=== PATIENT | male | born 1970 | race Two or more races ===

== ENCOUNTER 2022-11-06 08:41 | Outpatient (CLI) | payer OTHER | END 2022-11-06 08:52 | disposition home or self-care (01) | LOC: RX STUDY 08:41 | PROVIDERS: ATTEND Colon & Rectal Surgery | DX: K57.20 Diverticulitis of large intestine with perforation and abscess without bleeding (principal) ==

== ENCOUNTER 2023-04-17 09:23 | Inpatient (IN) | payer OTHER ==
[~2023-04-17] VITALS: Ht 185.4 cm; Wt 94.8 kg
[2023-04-18] MEDS ORDERED: JANUMET XR 50-1 EAC1 PO (10:55)
== END 2023-04-29 15:22 | disposition home or self-care (01) | DRG 331 ==
LOC: O/R 04-24 05:10 → SURG 04-24 09:30
PROVIDERS: Internal Medicine Geriatric Medicine; ADMIT Colon & Rectal Surgery; ATTEND Colon & Rectal Surgery
PROC: 0DBP4ZZ Excision of Rectum, Percutaneous Endoscopic Approach (ICD-10-PCS; 2023-04-24)
PROC: 0DBE4ZZ Excision of Large Intestine, Percutaneous Endoscopic Approach (ICD-10-PCS; 2023-04-24)
PROC: 0DJD8ZZ Inspection of Lower Intestinal Tract, Via Natural or Artificial Opening Endoscopic (ICD-10-PCS; 2023-04-24)
PROC: 0DTN4ZZ Resection of Sigmoid Colon, Percutaneous Endoscopic Approach (ICD-10-PCS; principal; 2023-04-24 14:45)
DX: K57.32 Diverticulitis of large intestine without perforation or abscess without bleeding (principal); Z43.3 Encounter for attention to colostomy

== ENCOUNTER 2023-06-25 11:27 | Inpatient (IN) | payer OTHER ==
[~2023-06-25] VITALS: Ht 185.4 cm; Wt 71.7 kg
[~2023-06-25 11:27] MED LIST: JANUMET XR 50-1 EAC1 PO
[2023-06-25 13:59] LABS: HEMATOCRIT 29.7 % (39.0-48.0); MEAN CELL VOLUME 85.6 fL (80.0-100.00); MEAN CORPUSCULAR HGB CONC 33.7 g/dl (32.0-36.0); PLATELET COUNT 562 K/uL (150-450); RED BLOOD COUNT 3.47 M/uL (4.00-6.00); RED CELL DISTRIBUTION WIDTH 14.4 % (11.5-14.5)
[2023-06-25 14:23] LABS: CALCIUM 8.8 mg/dL (8.5-10.1); CREATININE SERUM 0.56 mg/dL (0.70-1.30); GFR 153.21; POTASSIUM 4.34 mEq/L (3.5-5.1)
[2023-06-25 15:05] LABS: MEAN CORPUSCULAR HEMOGLOBIN 28.8 pg (27.00-32.0)
[2023-06-25 15:28] LABS: PH,URINE 5.5 (5.0-8.0); URINE APPEARANCE Cloudy; URINE BILIRRUBIN Small (NEGATIVE); URINE BLOOD Negative; URINE COLOR Dark Yellow; URINE GLUCOSE Negative (NEGATIVE); URINE LEUKOCYTE Trace; URINE NITRATE Negative; URINE PROTEIN 30 (NEGATIVE)
[2023-06-25 15:32] LABS: URINE BACTERIA 45.3 uL (0.0-1933); URINE EPITHELIAL CELLS 22.7 uL (0.0-38.8); URINE RBC 10.7 uL (0.0-20.8); URINE WBC 6.7 uL (0.0-23.2)
[2023-06-25 15:43] LABS: URINE CRYSTALS FEW /HPF
[2023-06-26 00:23] LABS: INR 1.09; PARTIAL THROMBOPLASTIN TIME 25.3 SECONDS (22.0-34.0); PROTHROMBIN TIME 11.4 SECONDS (9.0-11.5)
[2023-06-26 16:04] LABS: CALCIUM 7.9 mg/dL (8.5-10.1); CHOL HDL RATIO 2.2 (0-5.0); CREATININE SERUM 0.41 mg/dL (0.70-1.30); GFR 219.55; POTASSIUM 4.42 mEq/L (3.5-5.1)
[2023-06-27 08:33] LABS: ALBUMIN 1.6 gm/dL (3.4-5.0); BILIRUBIN TOTAL 0.54 mg/dL (0.3-1.2); CREATININE SERUM 0.47 mg/dL (0.70-1.30); GFR 187.53; GLOBULINA 3.8 G/DL (2.4-3.5); MAGNESIUM 1.6 mg/dL (1.8-2.4); PHOSPHOROUS 2.6 mg/dL (2.5-4.9); POTASSIUM 4.25 mEq/L (3.5-5.1); TOTAL PROTEIN 5.4 gm/dL (6.4-8.2)
[2023-06-27 08:44] LABS: C-REACTIVE PROTEIN 12.6 MG/DL (0.00-0.29); MEAN CELL VOLUME 85.8 fL (80.0-100.00); MEAN CORPUSCULAR HGB CONC 34.8 g/dl (32.0-36.0); PLATELET COUNT 398 K/uL (150-450); RED BLOOD COUNT 2.91 M/uL (4.00-6.00); RED CELL DISTRIBUTION WIDTH 14.1 % (11.5-14.5)
[2023-06-27 09:41] LABS: MEAN CORPUSCULAR HEMOGLOBIN 29.8 pg (27.00-32.0)
[2023-06-27 09:42] LABS: HEMOGLOBIN 8.7 g/dL (13-16.00)
[2023-06-30 07:47] LABS: HEMATOCRIT 27.3 % (39.0-48.0); HEMOGLOBIN 9.4 g/dL (13-16.00); MEAN CELL VOLUME 84.8 fL (80.0-100.00); MEAN CORPUSCULAR HEMOGLOBIN 29.1 pg (27.00-32.0); MEAN CORPUSCULAR HGB CONC 34.3 g/dl (32.0-36.0); PLATELET COUNT 421 K/uL (150-450); RED BLOOD COUNT 3.22 M/uL (4.00-6.00); RED CELL DISTRIBUTION WIDTH 14.1 % (11.5-14.5)
[2023-06-30 07:58] LABS: BILIRUBIN TOTAL 0.27 mg/dL (0.3-1.2); CALCIUM 8.1 mg/dL (8.5-10.1); CREATININE SERUM 0.46 mg/dL (0.70-1.30); GFR 192.25; GLOBULINA 4.2 G/DL (2.4-3.5); MAGNESIUM 1.7 mg/dL (1.8-2.4); PHOSPHOROUS 2.6 mg/dL (2.5-4.9); POTASSIUM 3.45 mEq/L (3.5-5.1); TOTAL PROTEIN 6.2 gm/dL (6.4-8.2)
[2023-06-30 08:04] LABS: C-REACTIVE PROTEIN 2.5 MG/DL (0.00-0.29)
[2023-07-02 07:15] LABS: INR 1.11; PARTIAL THROMBOPLASTIN TIME 25.9 SECONDS (22.0-34.0)
[2023-07-02 07:22] LABS: ALBUMIN 2.1 gm/dL (3.4-5.0); BILIRUBIN TOTAL 0.49 mg/dL (0.3-1.2); BILIRUBIN,CONJUGATED 0.17 mg/dL (0.0-0.2); BILIRUBIN,UNCONJUGATED 0.32 mg/dL (0.0-0.6); CALCIUM 8.1 mg/dL (8.5-10.1); CHOL HDL RATIO 2.7 (0-5.0); CREATININE SERUM 0.69 mg/dL (0.70-1.30); GFR 120.41; TOTAL PROTEIN 6.1 gm/dL (6.4-8.2)
[2023-07-02 07:52] LABS: MAGNESIUM 1.4 mg/dL (1.8-2.4)
[2023-07-02 07:57] LABS: POTASSIUM 2.93 mEq/L (3.5-5.1)
[2023-07-02 08:06] LABS: HEMATOCRIT 25.9 % (39.0-48.0); MEAN CELL VOLUME 86.1 fL (80.0-100.00); MEAN CORPUSCULAR HGB CONC 34.3 g/dl (32.0-36.0); PLATELET COUNT 382 K/uL (150-450); RED BLOOD COUNT 3.01 M/uL (4.00-6.00); RED CELL DISTRIBUTION WIDTH 14.2 % (11.5-14.5)
[2023-07-02 08:13] LABS: HEMOGLOBIN 8.9 g/dL (13-16.00); MEAN CORPUSCULAR HEMOGLOBIN 29.5 pg (27.00-32.0)
[2023-07-02 08:20] LABS: PROTHROMBIN TIME 11.6 SECONDS (9.0-11.5)
[2023-07-02 09:46] LABS: UREA CLEARANCE 35.7 ML/MIN
[2023-07-09 06:45] LABS: INR 1.21; PARTIAL THROMBOPLASTIN TIME 28.2 SECONDS (22.0-34.0); PROTHROMBIN TIME 12.5 SECONDS (9.0-11.5)
[2023-07-09 07:23] LABS: HEMATOCRIT 27.1 % (39.0-48.0); HEMOGLOBIN 9.5 g/dL (13-16.00); MEAN CORPUSCULAR HEMOGLOBIN 28.7 pg (27.00-32.0); PLATELET COUNT 344 K/uL (150-450); RED CELL DISTRIBUTION WIDTH 15.1 % (11.5-14.5)
[2023-07-09 07:28] LABS: ALBUMIN 2.3 gm/dL (3.4-5.0); BILIRUBIN TOTAL 0.41 mg/dL (0.3-1.2); BILIRUBIN,CONJUGATED 0.16 mg/dL (0.0-0.2); BILIRUBIN,UNCONJUGATED 0.25 mg/dL (0.0-0.6); CALCIUM 7.8 mg/dL (8.5-10.1); CHOL HDL RATIO 2.7 (0-5.0); CREATININE SERUM 0.9 mg/dL (0.70-1.30); GFR 88.61; TOTAL PROTEIN 6.3 gm/dL (6.4-8.2)
[2023-07-09 08:13] LABS: MAGNESIUM 0.9 mg/dL (1.8-2.4)
[2023-07-09 08:14] LABS: POTASSIUM 1.69 mEq/L (3.5-5.1)
[2023-07-09 11:30] LABS: UREA CLEARANCE 34.4 ML/MIN
[2023-07-10 06:28] LABS: HEMATOCRIT 24.5 % (39.0-48.0); MEAN CELL VOLUME 82.2 fL (80.0-100.00); PLATELET COUNT 335 K/uL (150-450); RED BLOOD COUNT 2.98 M/uL (4.00-6.00); RED CELL DISTRIBUTION WIDTH 15.6 % (11.5-14.5)
[2023-07-10 06:34] LABS: MEAN CORPUSCULAR HEMOGLOBIN 29.5 pg (27.00-32.0)
[2023-07-10 06:35] LABS: HEMOGLOBIN 8.8 g/dL (13-16.00)
[2023-07-10 07:09] LABS: ALBUMIN 2.3 gm/dL (3.4-5.0); CALCIUM 7.9 mg/dL (8.5-10.1); CREATININE SERUM 0.75 mg/dL (0.70-1.30); GFR 109.36; MAGNESIUM 1.5 mg/dL (1.8-2.4)
[2023-07-10 09:11] LABS: PHOSPHOROUS 0.5 mg/dL (2.5-4.9); POTASSIUM 1.72 mEq/L (3.5-5.1)
[2023-07-11 11:36] LABS: HEMATOCRIT 32.8 % (39.0-48.0); HEMOGLOBIN 11.6 g/dL (13-16.00); MEAN CELL VOLUME 83.2 fL (80.0-100.00); MEAN CORPUSCULAR HEMOGLOBIN 29.3 pg (27.00-32.0); MEAN CORPUSCULAR HGB CONC 35.3 g/dl (32.0-36.0); PLATELET COUNT 354 K/uL (150-450); RED BLOOD COUNT 3.94 M/uL (4.00-6.00); RED CELL DISTRIBUTION WIDTH 16.1 % (11.5-14.5)
[2023-07-11 12:10] LABS: CALCIUM 7.7 mg/dL (8.5-10.1); CREATININE SERUM 0.72 mg/dL (0.70-1.30); GFR 114.64; MAGNESIUM 1.8 mg/dL (1.8-2.4)
[2023-07-11 12:40] LABS: ALT/SGPT 8 U/L (12-78); AST/SGOT 22 U/L (15-37); PHOSPHOROUS 0.5 mg/dL (2.5-4.9); POTASSIUM 1.68 mEq/L (3.5-5.1)
[2023-07-11 12:41] LABS: PHOSPHOKINASE CREATININE 1108 U/L (39-308)
[2023-07-12 08:26] LABS: ALBUMIN 2.4 gm/dL (3.4-5.0); BILIRUBIN TOTAL 0.73 mg/dL (0.3-1.2); CALCIUM 7.9 mg/dL (8.5-10.1); CREATININE SERUM 0.66 mg/dL (0.70-1.30); GLOBULINA 4.1 G/DL (2.4-3.5); MAGNESIUM 2.2 mg/dL (1.8-2.4); T4 TOTAL 8.75 UG/DL (4.5-12.1); TOTAL PROTEIN 6.5 gm/dL (6.4-8.2); TSH 0.625 uIU/mL (0.358-3.74)
[2023-07-12 08:40] LABS: HEMATOCRIT 30.8 % (39.0-48.0); HEMOGLOBIN 10.9 g/dL (13-16.00); MEAN CELL VOLUME 83.5 fL (80.0-100.00); MEAN CORPUSCULAR HEMOGLOBIN 29.5 pg (27.00-32.0); MEAN CORPUSCULAR HGB CONC 35.3 g/dl (32.0-36.0); PLATELET COUNT 390 K/uL (150-450); RED BLOOD COUNT 3.68 M/uL (4.00-6.00); RED CELL DISTRIBUTION WIDTH 15.7 % (11.5-14.5)
[2023-07-12 09:27] LABS: GFR 126.74
[2023-07-12 09:52] LABS: PHOSPHOROUS 1.1 mg/dL (2.5-4.9); POTASSIUM 2.31 mEq/L (3.5-5.1)
[2023-07-13 07:51] LABS: HEMATOCRIT 32.4 % (39.0-48.0); HEMOGLOBIN 11.3 g/dL (13-16.00); MEAN CELL VOLUME 83.5 fL (80.0-100.00); MEAN CORPUSCULAR HEMOGLOBIN 29.1 pg (27.00-32.0); MEAN CORPUSCULAR HGB CONC 34.9 g/dl (32.0-36.0); PLATELET COUNT 391 K/uL (150-450); RED BLOOD COUNT 3.88 M/uL (4.00-6.00); RED CELL DISTRIBUTION WIDTH 15.8 % (11.5-14.5)
[2023-07-13 08:31] LABS: CALCIUM 7.7 mg/dL (8.5-10.1); CREATININE SERUM 0.65 mg/dL (0.70-1.30); MAGNESIUM 1.8 mg/dL (1.8-2.4)
[2023-07-13 09:11] LABS: PHOSPHOROUS 1.5 mg/dL (2.5-4.9); POTASSIUM 2.71 mEq/L (3.5-5.1)
[2023-07-14 08:06] LABS: ACTH 33.2 pg/mL (7.2-63.3)
[2023-07-14 11:29] LABS: HEMATOCRIT 34.3 % (39.0-48.0); HEMOGLOBIN 11.7 g/dL (13-16.00); MEAN CELL VOLUME 84.4 fL (80.0-100.00); MEAN CORPUSCULAR HEMOGLOBIN 28.9 pg (27.00-32.0); MEAN CORPUSCULAR HGB CONC 34.2 g/dl (32.0-36.0); PLATELET COUNT 384 K/uL (150-450); RED BLOOD COUNT 4.06 M/uL (4.00-6.00); RED CELL DISTRIBUTION WIDTH 15.4 % (11.5-14.5)
[2023-07-14 12:07] LABS: CALCIUM 8.5 mg/dL (8.5-10.1); CREATININE SERUM 0.61 mg/dL (0.70-1.30); GFR 138.81; MAGNESIUM 1.5 mg/dL (1.8-2.4); PHOSPHOROUS 2.2 mg/dL (2.5-4.9); POTASSIUM 3.24 mEq/L (3.5-5.1)
[2023-07-16 07:26] LABS: HEMATOCRIT 33.8 % (39.0-48.0); HEMOGLOBIN 11.7 g/dL (13-16.00); MEAN CELL VOLUME 84.6 fL (80.0-100.00); MEAN CORPUSCULAR HEMOGLOBIN 29.4 pg (27.00-32.0); MEAN CORPUSCULAR HGB CONC 34.7 g/dl (32.0-36.0); PLATELET COUNT 298 K/uL (150-450); RED CELL DISTRIBUTION WIDTH 16.1 % (11.5-14.5)
[2023-07-16 08:04] LABS: INR 1.06; PARTIAL THROMBOPLASTIN TIME 28.9 SECONDS (22.0-34.0); PROTHROMBIN TIME 11.1 SECONDS (9.0-11.5)
[2023-07-16 08:09] LABS: ALBUMIN 2.8 gm/dL (3.4-5.0); BILIRUBIN TOTAL 0.8 mg/dL (0.3-1.2); BILIRUBIN,CONJUGATED 0.36 mg/dL (0.0-0.2); BILIRUBIN,UNCONJUGATED 0.44 mg/dL (0.0-0.6); CALCIUM 8.9 mg/dL (8.5-10.1); CREATININE SERUM 0.66 mg/dL (0.70-1.30); GFR 126.74; GLOBULINA 4.3 G/DL (2.4-3.5); MAGNESIUM 1.8 mg/dL (1.8-2.4); PHOSPHOROUS 3.1 mg/dL (2.5-4.9); POTASSIUM 3.35 mEq/L (3.5-5.1); TOTAL PROTEIN 7.1 gm/dL (6.4-8.2)
[2023-07-16 08:12] LABS: C-REACTIVE PROTEIN 2.44 MG/DL (0.00-0.29)
[2023-07-16 10:48] LABS: UREA CLEARANCE 44.6 ML/MIN
[2023-07-17 12:08] LABS: ALDOSTERONE SERUM < 1.0 ng/dL (0.0-30.0)
[2023-07-17 14:23] LABS: CALCIUM 9.1 mg/dL (8.5-10.1); CREATININE SERUM 0.7 mg/dL (0.70-1.30); GFR 118.42; MAGNESIUM 1.9 mg/dL (1.8-2.4); PHOSPHOROUS 3.3 mg/dL (2.5-4.9); POTASSIUM 3.67 mEq/L (3.5-5.1)
[2023-07-18 07:57] LABS: CALCIUM 8.5 mg/dL (8.5-10.1); CREATININE SERUM 0.62 mg/dL (0.70-1.30); GFR 136.23; MAGNESIUM 1.7 mg/dL (1.8-2.4); PHOSPHOROUS 3.3 mg/dL (2.5-4.9); POTASSIUM 3.44 mEq/L (3.5-5.1)
[2023-07-18 08:02] LABS: HEMATOCRIT 31.3 % (39.0-48.0); HEMOGLOBIN 10.7 g/dL (13-16.00); MEAN CELL VOLUME 86.2 fL (80.0-100.00); MEAN CORPUSCULAR HEMOGLOBIN 29.6 pg (27.00-32.0); MEAN CORPUSCULAR HGB CONC 34.3 g/dl (32.0-36.0); PLATELET COUNT 198 K/uL (150-450); RED BLOOD COUNT 3.63 M/uL (4.00-6.00); RED CELL DISTRIBUTION WIDTH 17.3 % (11.5-14.5)
[2023-07-18 14:53] LABS: HEMATOCRIT 29.9 % (39.0-48.0); HEMOGLOBIN 10.2 g/dL (13-16.00); MEAN CELL VOLUME 88.2 fL (80.0-100.00); MEAN CORPUSCULAR HEMOGLOBIN 30.2 pg (27.00-32.0); MEAN CORPUSCULAR HGB CONC 34.2 g/dl (32.0-36.0); PLATELET COUNT 192 K/uL (150-450); RED BLOOD COUNT 3.39 M/uL (4.00-6.00); RED CELL DISTRIBUTION WIDTH 17.2 % (11.5-14.5)
[2023-07-19 08:41] LABS: HEMATOCRIT 28.4 % (39.0-48.0); HEMOGLOBIN 9.9 g/dL (13-16.00); MEAN CELL VOLUME 88.1 fL (80.0-100.00); MEAN CORPUSCULAR HEMOGLOBIN 30.7 pg (27.00-32.0); MEAN CORPUSCULAR HGB CONC 34.8 g/dl (32.0-36.0); PLATELET COUNT 200 K/uL (150-450); RED BLOOD COUNT 3.22 M/uL (4.00-6.00); RED CELL DISTRIBUTION WIDTH 16.7 % (11.5-14.5)
[2023-07-19 08:55] LABS: ALBUMIN 2.2 gm/dL (3.4-5.0); CALCIUM 7.9 mg/dL (8.5-10.1); CREATININE SERUM 0.62 mg/dL (0.70-1.30); GFR 136.23; MAGNESIUM 2.2 mg/dL (1.8-2.4); PHOSPHOROUS 2.8 mg/dL (2.5-4.9); POTASSIUM 4.48 mEq/L (3.5-5.1)
[2023-07-20 06:52] LABS: HEMATOCRIT 28.3 % (39.0-48.0); HEMOGLOBIN 9.7 g/dL (13-16.00); MEAN CELL VOLUME 87.1 fL (80.0-100.00); MEAN CORPUSCULAR HEMOGLOBIN 29.8 pg (27.00-32.0); MEAN CORPUSCULAR HGB CONC 34.3 g/dl (32.0-36.0); RED BLOOD COUNT 3.25 M/uL (4.00-6.00); RED CELL DISTRIBUTION WIDTH 16.7 % (11.5-14.5)
[2023-07-20 07:24] LABS: CALCIUM 8.1 mg/dL (8.5-10.1); CREATININE SERUM 0.55 mg/dL (0.70-1.30); GFR 156.43; MAGNESIUM 1.9 mg/dL (1.8-2.4); POTASSIUM 3.74 mEq/L (3.5-5.1)
[2023-07-20 08:23] LABS: PLATELET COUNT 181 K/uL (150-450)
[2023-07-22 08:44] LABS: CALCIUM 8.4 mg/dL (8.5-10.1); CREATININE SERUM 0.6 mg/dL (0.70-1.30); GFR 141.48; POTASSIUM 4.18 mEq/L (3.5-5.1)
[2023-07-23 02:05] LABS: RENIN ACTIVITY < 0.167 ng/mL/hr (0.167-5.380)
[2023-07-24 07:20] LABS: HEMATOCRIT 30.9 % (39.0-48.0); HEMOGLOBIN 10.5 g/dL (13-16.00); MEAN CELL VOLUME 87.1 fL (80.0-100.00); MEAN CORPUSCULAR HEMOGLOBIN 29.5 pg (27.00-32.0); MEAN CORPUSCULAR HGB CONC 33.9 g/dl (32.0-36.0); PLATELET COUNT 338 K/uL (150-450); RED BLOOD COUNT 3.55 M/uL (4.00-6.00); RED CELL DISTRIBUTION WIDTH 16.8 % (11.5-14.5)
[2023-07-24 07:29] LABS: INR 1.12; PARTIAL THROMBOPLASTIN TIME 30.4 SECONDS (22.0-34.0); PROTHROMBIN TIME 11.7 SECONDS (9.0-11.5)
[2023-07-24 07:45] LABS: CALCIUM 8.4 mg/dL (8.5-10.1); CREATININE SERUM 0.55 mg/dL (0.70-1.30); GFR 156.43; MAGNESIUM 1.5 mg/dL (1.8-2.4); PHOSPHOROUS 2.8 mg/dL (2.5-4.9); POTASSIUM 3.5 mEq/L (3.5-5.1)
[2023-07-25] MEDS ORDERED: PROTEINEX-18 LI30 ML PO (14:23)
[2023-07-25] MEDS ORDERED: SIMETHICONE125 M1 PO (14:23)
[2023-07-25] MEDS ORDERED: GABAPENTIN300 MG PO (14:23)
[2023-07-25] MEDS ORDERED: FAMOTIDINE20 MG PO (14:23)
[2023-07-25] MEDS ORDERED: POTASSIUM CHLOR8 MEQ PO (14:23)
[2023-07-25] MEDS ORDERED: AMOX-CLAV 875-1 EAC1 PO (14:23)
[2023-07-25] MEDS ORDERED: JANUMET XR 50-1 EAC1 PO (14:23)
[2023-07-25] MEDS ORDERED: HYOSCYAMINE0.125 M1 SL (14:23)
[2023-07-25] MEDS ORDERED: FUSION PLUS CA1 EACH PO (14:30)
[2023-07-25] MEDS ORDERED: ABANEU-SL TABL1 EACH SL (14:30)
== END 2023-07-25 14:58 | disposition home or self-care (01) | DRG 330 ==
LOC: ER 11:27 → SURH 20:26
PROVIDERS: Emergency Medicine; General Practice; Internal Medicine; Internal Medicine Endocrinology, Diabetes & Metabolism; Internal Medicine Geriatric Medicine; Internal Medicine Infectious Disease; Surgery; ADMIT Colon & Rectal Surgery; ATTEND Colon & Rectal Surgery
PROC: BW21YZZ Computerized Tomography (CT Scan) of Abdomen and Pelvis using Other Contrast (ICD-10-PCS; 2023-06-25)
PROC: 0W9J3ZZ Drainage of Pelvic Cavity, Percutaneous Approach (ICD-10-PCS; 2023-06-26)
PROC: 02HV33Z Insertion of Infusion Device into Superior Vena Cava, Percutaneous Approach (ICD-10-PCS; 2023-06-28)
PROC: BW21YZZ Computerized Tomography (CT Scan) of Abdomen and Pelvis using Other Contrast (ICD-10-PCS; 2023-07-03)
PROC: BW28YZZ Computerized Tomography (CT Scan) of Head using Other Contrast (ICD-10-PCS; 2023-07-08)
PROC: 4A12X4Z Monitoring of Cardiac Electrical Activity, External Approach (ICD-10-PCS; 2023-07-09)
PROC: 30233N1 Transfusion of Nonautologous Red Blood Cells into Peripheral Vein, Percutaneous Approach (ICD-10-PCS; 2023-07-10)
PROC: BW21YZZ Computerized Tomography (CT Scan) of Abdomen and Pelvis using Other Contrast (ICD-10-PCS; 2023-07-15)
PROC: 0D1L4Z4 Bypass Transverse Colon to Cutaneous, Percutaneous Endoscopic Approach (ICD-10-PCS; principal; 2023-07-18 09:00)
PROC: BW21YZZ Computerized Tomography (CT Scan) of Abdomen and Pelvis using Other Contrast (ICD-10-PCS; 2023-07-23)
DX: K65.1 Peritoneal abscess (principal); K57.32 Diverticulitis of large intestine without perforation or abscess without bleeding; M62.82 Rhabdomyolysis; K63.2 Fistula of intestine; B96.20 Unspecified Escherichia coli [E. coli] as the cause of diseases classified elsewhere; B95.2 Enterococcus as the cause of diseases classified elsewhere; B96.89 Other specified bacterial agents as the cause of diseases classified elsewhere; E11.65 Type 2 diabetes mellitus with hyperglycemia; Z79.4 Long term (current) use of insulin; E87.6 Hypokalemia; E83.42 Hypomagnesemia; D64.9 Anemia, unspecified
CPT/HCPCS: 70496

== ENCOUNTER 2023-08-03 16:21 | Inpatient (IN) | payer OTHER ==
[~2023-08-03] VITALS: Ht 33 cm; Wt 70.3 kg
[~2023-08-03 16:21] MED LIST changes: +ABANEU-SL TABL1 EACH SL; +AMOX-CLAV 875-1 EAC1 PO; +FAMOTIDINE20 MG PO; +FUSION PLUS CA1 EACH PO; +GABAPENTIN300 MG PO; +HYOSCYAMINE0.125 M1 SL; +POTASSIUM CHLOR8 MEQ PO; +PROTEINEX-18 LI30 ML PO; +SIMETHICONE125 M1 PO
[2023-08-03 18:53] LABS: HEMATOCRIT 32.2 % (39.0-48.0); HEMOGLOBIN 10.8 g/dL (13-16.00); MEAN CELL VOLUME 89.9 fL (80.0-100.00); MEAN CORPUSCULAR HEMOGLOBIN 30.1 pg (27.00-32.0); MEAN CORPUSCULAR HGB CONC 33.5 g/dl (32.0-36.0); PLATELET COUNT 305 K/uL (150-450); RED BLOOD COUNT 3.58 M/uL (4.00-6.00); RED CELL DISTRIBUTION WIDTH 17.5 % (11.5-14.5)
[2023-08-03 19:19] LABS: INR 1.04; PROTHROMBIN TIME 10.9 SECONDS (9.0-11.5)
[2023-08-03 19:25] LABS: BILIRUBIN TOTAL 0.59 mg/dL (0.3-1.2); CALCIUM 9.8 mg/dL (8.5-10.1); CREATININE SERUM 0.61 mg/dL (0.70-1.30); GFR 138.81; GLOBULINA 5.2 G/DL (2.4-3.5); POTASSIUM 4.02 mEq/L (3.5-5.1); TOTAL PROTEIN 8.2 gm/dL (6.4-8.2)
[2023-08-03 20:44] LABS: PH,URINE 6.5 (5.0-8.0); URINE APPEARANCE Clear; URINE BILIRRUBIN Negative (NEGATIVE); URINE BLOOD Negative; URINE COLOR Yellow; URINE GLUCOSE Negative (NEGATIVE); URINE LEUKOCYTE Negative; URINE NITRATE Negative; URINE PROTEIN Negative (NEGATIVE); URINE UROBILINOGEN 0.2 E.U./dl
[2023-08-03 20:48] LABS: URINE BACTERIA 13.8 uL (0.0-1933); URINE EPITHELIAL CELLS 1.6 uL (0.0-38.8); URINE WBC 8.1 uL (0.0-23.2)
[2023-08-03 21:56] LABS: HEMATOCRIT 27.9 % (39.0-48.0); HEMOGLOBIN 9.6 g/dL (13-16.00); MEAN CELL VOLUME 88.9 fL (80.0-100.00); MEAN CORPUSCULAR HEMOGLOBIN 30.5 pg (27.00-32.0); MEAN CORPUSCULAR HGB CONC 34.3 g/dl (32.0-36.0); PLATELET COUNT 258 K/uL (150-450); RED BLOOD COUNT 3.14 M/uL (4.00-6.00); RED CELL DISTRIBUTION WIDTH 17.5 % (11.5-14.5)
[2023-08-04 03:37] LABS: CKMB 1.3 NG/ML (0.5-3.6)
[2023-08-04 08:16] LABS: ALBUMIN 2.5 gm/dL (3.4-5.0); BILIRUBIN TOTAL 0.45 mg/dL (0.3-1.2); BILIRUBIN,CONJUGATED 0.16 mg/dL (0.0-0.2); BILIRUBIN,UNCONJUGATED 0.29 mg/dL (0.0-0.6); CALCIUM 8.1 mg/dL (8.5-10.1); CHOL HDL RATIO 3.9 (0-5.0); CREATININE SERUM 0.39 mg/dL (0.70-1.30); GFR 232.59; GLOBULINA 3.6 G/DL (2.4-3.5); POTASSIUM 3.91 mEq/L (3.5-5.1); TOTAL PROTEIN 6.1 gm/dL (6.4-8.2)
[2023-08-04 08:46] LABS: URINE APPEARANCE Clear; URINE BILIRRUBIN Negative (NEGATIVE); URINE BLOOD Negative; URINE COLOR Yellow; URINE GLUCOSE Negative (NEGATIVE); URINE LEUKOCYTE Negative; URINE NITRATE Negative; URINE PROTEIN Negative (NEGATIVE); URINE UROBILINOGEN 0.2 E.U./dl
[2023-08-04 08:49] LABS: URINE BACTERIA 13.8 uL (0.0-1933); URINE WBC 4.6 uL (0.0-23.2)
[2023-08-04 09:11] LABS: INR 1.11; PARTIAL THROMBOPLASTIN TIME 28.5 SECONDS (22.0-34.0); PROTHROMBIN TIME 11.6 SECONDS (9.0-11.5)
[2023-08-04 09:14] LABS: HEMATOCRIT 23.7 % (39.0-48.0); MEAN CELL VOLUME 89.7 fL (80.0-100.00); PLATELET COUNT 257 K/uL (150-450); RED BLOOD COUNT 2.64 M/uL (4.00-6.00); RED CELL DISTRIBUTION WIDTH 17.1 % (11.5-14.5)
[2023-08-04 09:19] LABS: MEAN CORPUSCULAR HEMOGLOBIN 31.4 pg (27.00-32.0)
[2023-08-04 09:20] LABS: URINE EPITHELIAL CELLS 0.7 uL (0.0-38.8); URINE RBC 0.7 uL (0.0-20.8)
[2023-08-04 09:23] LABS: HEMOGLOBIN 8.3 g/dL (13-16.00)
[2023-08-04 09:50] LABS: COL EPI 123 SECONDS (82-175)
[2023-08-04 09:51] LABS: ERYTHROCYTE SEDIMENTATION RATE 54 mm/hr
[2023-08-04 10:40] LABS: CKMB 1.7 NG/ML (0.5-3.6)
[2023-08-04 18:55] LABS: CKMB 2.3 NG/ML (0.5-3.6)
[2023-08-05 07:58] LABS: HEMATOCRIT 39.9 % (39.0-48.0); MEAN CELL VOLUME 86.7 fL (80.0-100.00); MEAN CORPUSCULAR HEMOGLOBIN 30.4 pg (27.00-32.0); MEAN CORPUSCULAR HGB CONC 35.1 g/dl (32.0-36.0); PLATELET COUNT 292 K/uL (150-450); RED CELL DISTRIBUTION WIDTH 16.5 % (11.5-14.5)
[2023-08-06 07:42] LABS: ALBUMIN 2.7 gm/dL (3.4-5.0); BILIRUBIN TOTAL 0.41 mg/dL (0.3-1.2); CREATININE SERUM 0.61 mg/dL (0.70-1.30); GFR 138.81; GLOBULINA 3.6 G/DL (2.4-3.5); POTASSIUM 3.7 mEq/L (3.5-5.1); TOTAL PROTEIN 6.3 gm/dL (6.4-8.2)
[2023-08-06 07:45] LABS: HEMATOCRIT 35.8 % (39.0-48.0); HEMOGLOBIN 12.4 g/dL (13-16.00); MEAN CELL VOLUME 88.5 fL (80.0-100.00); MEAN CORPUSCULAR HEMOGLOBIN 30.6 pg (27.00-32.0); MEAN CORPUSCULAR HGB CONC 34.6 g/dl (32.0-36.0); PLATELET COUNT 243 K/uL (150-450); RED BLOOD COUNT 4.05 M/uL (4.00-6.00); RED CELL DISTRIBUTION WIDTH 16.4 % (11.5-14.5)
[2023-08-07 08:00] LABS: HEMATOCRIT 33.2 % (39.0-48.0); HEMOGLOBIN 11.2 g/dL (13-16.00); MEAN CELL VOLUME 87.9 fL (80.0-100.00); MEAN CORPUSCULAR HEMOGLOBIN 29.8 pg (27.00-32.0); MEAN CORPUSCULAR HGB CONC 33.8 g/dl (32.0-36.0); PLATELET COUNT 211 K/uL (150-450); RED BLOOD COUNT 3.78 M/uL (4.00-6.00); RED CELL DISTRIBUTION WIDTH 16.4 % (11.5-14.5)
[2023-08-07 08:25] LABS: CALCIUM 8.7 mg/dL (8.5-10.1); CREATININE SERUM 0.45 mg/dL (0.70-1.30); GFR 197.19; MAGNESIUM 1.6 mg/dL (1.8-2.4); PHOSPHOROUS 3.3 mg/dL (2.5-4.9); POTASSIUM 3.66 mEq/L (3.5-5.1)
[2023-08-08 07:01] LABS: CALCIUM 8.7 mg/dL (8.5-10.1); CREATININE SERUM 0.4 mg/dL (0.70-1.30); GFR 225.89; PHOSPHOROUS 3.1 mg/dL (2.5-4.9); POTASSIUM 3.81 mEq/L (3.5-5.1)
[2023-08-08 07:05] LABS: HEMATOCRIT 33.2 % (39.0-48.0); HEMOGLOBIN 11.6 g/dL (13-16.00); MEAN CORPUSCULAR HEMOGLOBIN 31.1 pg (27.00-32.0); MEAN CORPUSCULAR HGB CONC 34.9 g/dl (32.0-36.0); PLATELET COUNT 234 K/uL (150-450); RED BLOOD COUNT 3.73 M/uL (4.00-6.00); RED CELL DISTRIBUTION WIDTH 16.3 % (11.5-14.5)
[2023-08-09] MEDS ORDERED: ABANEU-SL TABL1 EACH SL (13:35)
[2023-08-09] MEDS ORDERED: PROTONIX40 MG PO (13:35)
[2023-08-09] MEDS ORDERED: FUSION PLUS CA1 EACH PO (13:35)
== END 2023-08-09 14:07 | disposition home or self-care (01) | DRG 378 ==
LOC: ER 16:21 → ICU-2 23:45 → SURH 08-05 12:53
PROVIDERS: General Practice; Internal Medicine; Internal Medicine Geriatric Medicine; ADMIT Colon & Rectal Surgery; ATTEND Colon & Rectal Surgery
PROC: 30233N1 Transfusion of Nonautologous Red Blood Cells into Peripheral Vein, Percutaneous Approach (ICD-10-PCS; 2023-08-04)
PROC: 4A12X4Z Monitoring of Cardiac Electrical Activity, External Approach (ICD-10-PCS; 2023-08-04)
PROC: 3E0F7SF Introduction of Other Gas into Respiratory Tract, Via Natural or Artificial Opening (ICD-10-PCS; 2023-08-04)
PROC: 0DJ08ZZ Inspection of Upper Intestinal Tract, Via Natural or Artificial Opening Endoscopic (ICD-10-PCS; principal; 2023-08-08)
DX: K92.1 Melena (principal); D62 Acute posthemorrhagic anemia; K26.9 Duodenal ulcer, unspecified as acute or chronic, without hemorrhage or perforation; K44.9 Diaphragmatic hernia without obstruction or gangrene; E11.9 Type 2 diabetes mellitus without complications; Z93.2 Ileostomy status; Z79.84 Long term (current) use of oral hypoglycemic drugs; Z79.4 Long term (current) use of insulin

== ENCOUNTER 2023-08-12 10:31 | Inpatient (IN) | payer OTHER ==
[~2023-08-12] VITALS: Ht 185.4 cm; Wt 65.3 kg
[~2023-08-12 10:31] MED LIST changes: +PROTONIX40 MG PO
[2023-08-12 12:41] LABS: HEMATOCRIT 34.1 % (39.0-48.0); HEMOGLOBIN 11.8 g/dL (13-16.00); MEAN CELL VOLUME 89.9 fL (80.0-100.00); MEAN CORPUSCULAR HGB CONC 34.5 g/dl (32.0-36.0); PLATELET COUNT 275 K/uL (150-450); RED BLOOD COUNT 3.79 M/uL (4.00-6.00); RED CELL DISTRIBUTION WIDTH 15.4 % (11.5-14.5)
[2023-08-12 13:09] LABS: PH,URINE 5.5 (5.0-8.0); URINE APPEARANCE Clear; URINE BILIRRUBIN Small (NEGATIVE); URINE BLOOD Negative; URINE COLOR Dark Yellow; URINE GLUCOSE Negative (NEGATIVE); URINE LEUKOCYTE Trace; URINE NITRATE Negative; URINE PROTEIN 30 (NEGATIVE)
[2023-08-12 13:16] LABS: URINE BACTERIA 20.1 uL (0.0-1933); URINE EPITHELIAL CELLS 36.1 uL (0.0-38.8); URINE RBC 5.7 uL (0.0-20.8); URINE WBC 33.3 uL (0.0-23.2)
[2023-08-12 13:48] LABS: URINE MUCUS SCANT
[2023-08-12 13:49] LABS: CALCIUM 9.2 mg/dL (8.5-10.1); CREATININE SERUM 0.58 mg/dL (0.70-1.30); GFR 147.13; POTASSIUM 3.98 mEq/L (3.5-5.1)
[2023-08-13 05:41] LABS: HEMATOCRIT 30.6 % (39.0-48.0); HEMOGLOBIN 10.5 g/dL (13-16.00); MEAN CELL VOLUME 89.5 fL (80.0-100.00); MEAN CORPUSCULAR HEMOGLOBIN 30.9 pg (27.00-32.0); MEAN CORPUSCULAR HGB CONC 34.5 g/dl (32.0-36.0); PLATELET COUNT 253 K/uL (150-450); RED BLOOD COUNT 3.42 M/uL (4.00-6.00); RED CELL DISTRIBUTION WIDTH 15.7 % (11.5-14.5)
[2023-08-13 05:45] LABS: INR 1.06; PARTIAL THROMBOPLASTIN TIME 32.5 SECONDS (22.0-34.0); PROTHROMBIN TIME 11.1 SECONDS (9.0-11.5)
[2023-08-13 05:53] LABS: ALBUMIN 2.5 gm/dL (3.4-5.0); BILIRUBIN TOTAL 0.47 mg/dL (0.3-1.2); CALCIUM 8.9 mg/dL (8.5-10.1); CREATININE SERUM 0.48 mg/dL (0.70-1.30); GFR 183.03; GLOBULINA 3.7 G/DL (2.4-3.5); POTASSIUM 3.93 mEq/L (3.5-5.1); TOTAL PROTEIN 6.2 gm/dL (6.4-8.2)
[2023-08-13 06:11] LABS: ERYTHROCYTE SEDIMENTATION RATE 116 mm/hr
[2023-08-14] MEDS ORDERED: POTASSIUM CHLOR8 MEQ (08:00)
[2023-08-14] MEDS ORDERED: FAMOTIDINE20 MG (08:00)
[2023-08-14] MEDS ORDERED: FUSION PLUS CA1 EACH (08:00)
[2023-08-14] MEDS ORDERED: HYOSCYAMINE0.125 M1 (08:01)
[2023-08-14] MEDS ORDERED: GAS RELIEF125 MG (08:01)
[2023-08-15 07:28] LABS: HEMOGLOBIN 11.3 g/dL (13-16.00); MEAN CELL VOLUME 88.6 fL (80.0-100.00); MEAN CORPUSCULAR HEMOGLOBIN 30.3 pg (27.00-32.0); MEAN CORPUSCULAR HGB CONC 34.1 g/dl (32.0-36.0); PLATELET COUNT 281 K/uL (150-450); RED BLOOD COUNT 3.72 M/uL (4.00-6.00); RED CELL DISTRIBUTION WIDTH 15.5 % (11.5-14.5)
[2023-08-15 07:38] LABS: ERYTHROCYTE SEDIMENTATION RATE 70 mm/hr
[2023-08-15 08:24] LABS: CALCIUM 8.9 mg/dL (8.5-10.1); CREATININE SERUM 0.61 mg/dL (0.70-1.30); GFR 138.81; MAGNESIUM 1.6 mg/dL (1.8-2.4); PHOSPHOROUS 4.4 mg/dL (2.5-4.9); POTASSIUM 3.57 mEq/L (3.5-5.1)
[2023-08-15 08:26] LABS: C-REACTIVE PROTEIN 5.93 MG/DL (0.00-0.29)
[2023-08-18 08:15] LABS: HEMATOCRIT 32.6 % (39.0-48.0); HEMOGLOBIN 11.2 g/dL (13-16.00); MEAN CELL VOLUME 88.9 fL (80.0-100.00); MEAN CORPUSCULAR HEMOGLOBIN 30.4 pg (27.00-32.0); MEAN CORPUSCULAR HGB CONC 34.3 g/dl (32.0-36.0); PLATELET COUNT 278 K/uL (150-450); RED BLOOD COUNT 3.66 M/uL (4.00-6.00); RED CELL DISTRIBUTION WIDTH 15.5 % (11.5-14.5)
[2023-08-18 08:30] LABS: ERYTHROCYTE SEDIMENTATION RATE 67 mm/hr
[2023-08-18 09:12] LABS: CALCIUM 8.3 mg/dL (8.5-10.1); CREATININE SERUM 0.53 mg/dL (0.70-1.30); GFR 163.26; MAGNESIUM 1.9 mg/dL (1.8-2.4); PHOSPHOROUS 2.7 mg/dL (2.5-4.9); POTASSIUM 3.65 mEq/L (3.5-5.1)
[2023-08-18 09:13] LABS: C-REACTIVE PROTEIN 6.28 MG/DL (0.00-0.29)
[2023-08-21 07:00] LABS: HEMOGLOBIN 10.7 g/dL (13-16.00); MEAN CELL VOLUME 86.8 fL (80.0-100.00); MEAN CORPUSCULAR HGB CONC 34.6 g/dl (32.0-36.0); PLATELET COUNT 342 K/uL (150-450); RED BLOOD COUNT 3.57 M/uL (4.00-6.00); RED CELL DISTRIBUTION WIDTH 15.5 % (11.5-14.5)
[2023-08-21 07:38] LABS: ERYTHROCYTE SEDIMENTATION RATE 50 mm/hr
[2023-08-21 07:42] LABS: ALBUMIN 2.4 gm/dL (3.4-5.0); BILIRUBIN TOTAL 0.26 mg/dL (0.3-1.2); CREATININE SERUM 0.49 mg/dL (0.70-1.30); GFR 178.73; GLOBULINA 3.5 G/DL (2.4-3.5); POTASSIUM 3.92 mEq/L (3.5-5.1); TOTAL PROTEIN 5.9 gm/dL (6.4-8.2)
[2023-08-21 07:44] LABS: C-REACTIVE PROTEIN 1.28 MG/DL (0.00-0.29)
[2023-08-24 06:22] LABS: HEMATOCRIT 32.1 % (39.0-48.0); HEMOGLOBIN 11.1 g/dL (13-16.00); MEAN CELL VOLUME 86.7 fL (80.0-100.00); MEAN CORPUSCULAR HGB CONC 34.6 g/dl (32.0-36.0); PLATELET COUNT 330 K/uL (150-450); RED CELL DISTRIBUTION WIDTH 15.6 % (11.5-14.5)
[2023-08-24 07:02] LABS: ALBUMIN 2.6 gm/dL (3.4-5.0); BILIRUBIN TOTAL 0.26 mg/dL (0.3-1.2); CALCIUM 9.6 mg/dL (8.5-10.1); CREATININE SERUM 0.47 mg/dL (0.70-1.30); GFR 187.53; GLOBULINA 3.7 G/DL (2.4-3.5); MAGNESIUM 1.5 mg/dL (1.8-2.4); POTASSIUM 3.96 mEq/L (3.5-5.1); TOTAL PROTEIN 6.3 gm/dL (6.4-8.2)
[2023-08-27 07:27] LABS: CALCIUM 9.5 mg/dL (8.5-10.1); CREATININE SERUM 0.63 mg/dL (0.70-1.30); GFR 133.74; MAGNESIUM 1.7 mg/dL (1.8-2.4); PHOSPHOROUS 3.2 mg/dL (2.5-4.9); POTASSIUM 4.46 mEq/L (3.5-5.1)
[2023-08-27 07:33] LABS: HEMOGLOBIN 11.6 g/dL (13-16.00); MEAN CELL VOLUME 89.6 fL (80.0-100.00); MEAN CORPUSCULAR HEMOGLOBIN 30.5 pg (27.00-32.0); PLATELET COUNT 289 K/uL (150-450); RED BLOOD COUNT 3.79 M/uL (4.00-6.00)
[2023-08-27 07:38] LABS: C-REACTIVE PROTEIN 1.27 MG/DL (0.00-0.29)
[2023-08-30 07:04] LABS: HEMATOCRIT 35.5 % (39.0-48.0); HEMOGLOBIN 12.1 g/dL (13-16.00); MEAN CELL VOLUME 90.3 fL (80.0-100.00); MEAN CORPUSCULAR HEMOGLOBIN 30.7 pg (27.00-32.0); PLATELET COUNT 263 K/uL (150-450); RED BLOOD COUNT 3.93 M/uL (4.00-6.00); RED CELL DISTRIBUTION WIDTH 15.4 % (11.5-14.5)
[2023-08-30 10:27] LABS: CALCIUM 10.3 mg/dL (8.5-10.1); CREATININE SERUM 0.58 mg/dL (0.70-1.30); GFR 147.13; MAGNESIUM 1.9 mg/dL (1.8-2.4); POTASSIUM 4.21 mEq/L (3.5-5.1)
[2023-09-01] MEDS ORDERED: FAMOTIDINE20 MG PO (14:08)
[2023-09-01] MEDS ORDERED: INTESTINEX680 M1 PO (14:08)
[2023-09-01] MEDS ORDERED: ABANEU-SL TABL1 EACH SL (14:08)
== END 2023-09-01 16:26 | disposition home or self-care (01) | DRG 602 ==
LOC: ER 10:32 → MEDJ 19:01 → SURH 19:01 → SEC-K 19:01 → MEDJ 21:55 → SURH 08-13 15:39
PROVIDERS: General Practice; Internal Medicine; Internal Medicine Geriatric Medicine; Specialist; ADMIT Colon & Rectal Surgery; ATTEND Colon & Rectal Surgery
PROC: BW21YZZ Computerized Tomography (CT Scan) of Abdomen and Pelvis using Other Contrast (ICD-10-PCS; 2023-08-12)
PROC: BW21YZZ Computerized Tomography (CT Scan) of Abdomen and Pelvis using Other Contrast (ICD-10-PCS; 2023-08-15)
PROC: 0W9F30Z Drainage of Abdominal Wall with Drainage Device, Percutaneous Approach (ICD-10-PCS; principal; 2023-08-17)
PROC: BW21YZZ Computerized Tomography (CT Scan) of Abdomen and Pelvis using Other Contrast (ICD-10-PCS; 2023-08-23)
PROC: 0J9930Z Drainage of Buttock Subcutaneous Tissue and Fascia with Drainage Device, Percutaneous Approach (ICD-10-PCS; 2023-08-24)
PROC: BW21YZZ Computerized Tomography (CT Scan) of Abdomen and Pelvis using Other Contrast (ICD-10-PCS; 2023-08-31)
PROC: 02HV33Z Insertion of Infusion Device into Superior Vena Cava, Percutaneous Approach (ICD-10-PCS; 2023-09-01)
DX: L02.211 Cutaneous abscess of abdominal wall (principal); K65.1 Peritoneal abscess; B96.1 Klebsiella pneumoniae [K. pneumoniae] as the cause of diseases classified elsewhere; B96.20 Unspecified Escherichia coli [E. coli] as the cause of diseases classified elsewhere; E11.9 Type 2 diabetes mellitus without complications; Z79.4 Long term (current) use of insulin

== ENCOUNTER 2023-11-20 07:12 | Outpatient (CLI) | payer OTHER ==
[~2023-11-20 07:12] MED LIST changes: +FAMOTIDINE20 MG; +FUSION PLUS CA1 EACH; +GAS RELIEF125 MG; +HYOSCYAMINE0.125 M1; +INTESTINEX680 M1 PO; +POTASSIUM CHLOR8 MEQ
== END 2023-11-20 07:25 | disposition home or self-care (01) ==
LOC: TOM 07:12
PROVIDERS: ATTEND Colon & Rectal Surgery
DX: K57.32 Diverticulitis of large intestine without perforation or abscess without bleeding (principal)

== ENCOUNTER 2025-02-11 09:00 | Inpatient (IN) | payer OTHER ==
[~2025-02-11] VITALS: Ht 182.9 cm; Wt 88.9 kg
[2025-02-11 10:36] VITALS: BP 143/83
[2025-02-11] MEDS ORDERED: SYNJARDY 12.5-1 EACH PO (10:36)
[2025-02-11 11:48] LABS: INR 1.03
[2025-02-17] MEDS ORDERED: LIDOCAINE HCL 1% 20 ML VIAL IJ ONE (14:00)
[2025-02-17] MEDS ORDERED: CEFTRIAXONE SODIUM 2,000 MG VIAL IV ONE (14:00)
[2025-02-17] MEDS ORDERED: BUPIVACAINE HCL 30 ML VIAL IJ ONE (14:00)
[2025-02-17] MEDS ORDERED: METRONIDAZOLE/SODIUM CHLORIDE 500 MG/100 ML PIGGYBACK IV ONE (14:00)
[2025-02-17] MEDS ORDERED: DEXTROSE 50 % IN WATER 0.5 G/ML VIAL IV PRN ×2 (15:45→19:45)
[2025-02-17] MEDS ORDERED: ONDANSETRON HCL 2 MG/ML VIAL IV PRN (15:45)
[2025-02-17] MEDS ORDERED: MORPHINE SULFATE 4 MG/ML CARTRIDGE IV PRN (15:45)
[2025-02-17] MEDS ORDERED: OxyCODONE HCL 5 MG TABLET (ROXICODONE) PO PRN (15:45)
[2025-02-17] MEDS ORDERED: RINGERS SOLUTION,LACTATED 1,000 ML IV SCH (15:45)
[2025-02-17] MEDS ORDERED: CELECOXIB 200 MG CAPSULE PO SCH (17:00)
[2025-02-17] MEDS ORDERED: GABAPENTIN 300 MG CAPSULE PO SCH (17:00)
[2025-02-17] MEDS ORDERED: POLYETHYLENE GLYCOL 3350 17 GM BLIST.PACK PO SCH (17:00)
[2025-02-17] MEDS ORDERED: METOCLOPRAMIDE HCL 5 MG/ML VIAL IV SCH (17:00)
[2025-02-17] MEDS ORDERED: HYOSCYAMINE SULFATE 0.125 MG TAB.SUBL SL SCH (17:00)
[2025-02-17] MEDS ORDERED: SUGAMMADEX SODIUM 200 MG/2 ML VIAL IV ONE (17:00)
[2025-02-17] MEDS ORDERED: MORPHINE SULFATE 4 MG/ML VIAL IV ONE (18:40)
[2025-02-17] MEDS ORDERED: INSULIN LISPRO 1,000 UNIT/10 ML UNITS SUBCUTANEO PRN (19:45)
[2025-02-17] MEDS ORDERED: ACETAMINOPHEN 500 MG GEL..CAP PO SCH (20:00)
[2025-02-17] MEDS ORDERED: SIMETHICONE 125 MG CAPSULE PO SCH (21:00)
[2025-02-17] MEDS ORDERED: FAMOTIDINE/PF 20 MG/2 ML VIAL IV PUSH SCH (21:00)
[2025-02-17 23:12] LABS: BASO % 0.2 % (0.1-1.2); EOS # 0.00 (0.04-0.54); EOS % 0.0 % (0.7-7.0); LYMPH # 0.67 (1.18-3.74); LYMPH % 5.2 % (19.3-53.1); MEAN PLATELET VOLUME 11.20 fl (9.4-12.4); MONO # 2.03 (0.24-0.82); NEUT # 10.15 (1.56-6.13); NEUT % 78.7 % (34.0-71.1); RED CELL DISTRIBUTION WIDTH 12.4 % (11.6-14.4)
[2025-02-17 23:19] LABS: MONO % 15.7 % (4.7-12.5)
[2025-02-18 06:44] LABS: BASO % 0.1 % (0.1-1.2); EOS # 0.00 (0.04-0.54); EOS % 0.0 % (0.7-7.0); LYMPH # 0.51 (1.18-3.74); LYMPH % 3.6 % (19.3-53.1); MEAN PLATELET VOLUME 10.90 fl (9.4-12.4); MONO # 1.79 (0.24-0.82); NEUT # 11.88 (1.56-6.13); NEUT % 83.3 % (34.0-71.1); RED CELL DISTRIBUTION WIDTH 12.4 % (11.6-14.4)
[2025-02-18 06:49] LABS: MONO % 12.6 % (4.7-12.5)
[2025-02-18 07:03] LABS: BUN CREA RATIO 18.0 (7.0-25.0); CREATININE SERUM 1.65 mg/dL (0.70-1.30); GFR 43.69; OSMOLALITY SERUM 289.0 MOSM/KG (275-295)
[2025-02-18 07:05] LABS: GLUCOSE FASTING 268.0 mg/dL (65-100)
[2025-02-18] MEDS ORDERED: MORPHINE SULFATE 4 MG/ML VIAL IV ONE (08:25)
[2025-02-18] MEDS ORDERED: LACTULOSE 20 G/30 ML BLIST.PACK PO SCH (09:00)
[2025-02-18] MEDS ORDERED: LACTOBACILLUS ACIDOPHILUS 1 CAP CAP PO SCH (09:00)
[2025-02-18 17:00] VITALS: BP 122/87; O2SAT 96
[2025-02-18] MEDS ORDERED: ENOXAPARIN SODIUM 40 MG/0.4 ML SYRINGE SUBCUTANEO SCH (17:00)
[2025-02-18] MEDS ORDERED: 0.9 % SODIUM CHLORIDE 1,000 ML IV SCH (21:00)
[2025-02-18 21:37] VITALS: O2SAT 97
[2025-02-19] VITALS (9 sets, daily range): BP systolic 114–136; BP diastolic 80–91; O2SAT 95–99
[2025-02-19 08:01] LABS: BASO % 0.2 % (0.1-1.2); EOS # 0.07 (0.04-0.54); EOS % 0.7 % (0.7-7.0); LYMPH # 0.81 (1.18-3.74); LYMPH % 8.4 % (19.3-53.1); MEAN PLATELET VOLUME 10.70 fl (9.4-12.4); MONO # 0.76 (0.24-0.82); MONO % 7.9 % (4.7-12.5); NEUT # 7.90 (1.56-6.13); NEUT % 82.4 % (34.0-71.1); RED CELL DISTRIBUTION WIDTH 12.9 % (11.6-14.4)
[2025-02-19 08:36] LABS: ALT/SGPT 27.0 U/L (12-78); AST/SGOT 16.0 U/L (15-37); BILIRUBIN TOTAL 1.29 mg/dL (0.3-1.2); BUN CREA RATIO 26.0 (7.0-25.0); CREATININE SERUM 1.0 mg/dL (0.70-1.30); GFR 77.87; GLOBULINA 3.1 G/DL (2.4-3.5); GLUCOSE FASTING 135.0 mg/dL (65-100); OSMOLALITY SERUM 284.0 MOSM/KG (275-295)
[2025-02-19] MEDS ORDERED: ENOXAPARIN SODIUM 40 MG/0.4 ML SYRINGE SUBCUTANEO SCH (09:00)
[2025-02-20] VITALS (7 sets, daily range): BP systolic 149–171; BP diastolic 95–108; O2SAT 90–96
[2025-02-20] MEDS ORDERED: MORPHINE SULFATE 4 MG/ML CARTRIDGE IV PRN (12:00)
[2025-02-20] MEDS ORDERED: OxyCODONE HCL 5 MG TABLET (ROXICODONE) PO PRN (12:00)
[2025-02-20] MEDS ORDERED: ENALAPRILAT DIHYDRATE 1.25 MG/ML VIAL IV PRN (17:00)
[2025-02-21] VITALS (8 sets, daily range): BP systolic 121–165; BP diastolic 70–90; O2SAT 90–100
[2025-02-21 08:08] LABS: BASO % 0.3 % (0.1-1.2); EOS # 0.22 (0.04-0.54); EOS % 3.7 % (0.7-7.0); LYMPH # 0.38 (1.18-3.74); LYMPH % 6.4 % (19.3-53.1); MEAN PLATELET VOLUME 10.60 fl (9.4-12.4); MONO # 0.67 (0.24-0.82); MONO % 11.2 % (4.7-12.5); NEUT # 4.66 (1.56-6.13); NEUT % 78.1 % (34.0-71.1); RED CELL DISTRIBUTION WIDTH 13.0 % (11.6-14.4)
[2025-02-21 08:38] LABS: ALT/SGPT 23.0 U/L (12-78); AST/SGOT 16.0 U/L (15-37); BILIRUBIN TOTAL 0.97 mg/dL (0.3-1.2); BUN CREA RATIO 29.0 (7.0-25.0); CREATININE SERUM 0.49 mg/dL (0.70-1.30); GFR 177.37; GLOBULINA 3.2 G/DL (2.4-3.5); GLUCOSE FASTING 145.0 mg/dL (65-100); OSMOLALITY SERUM 286.0 MOSM/KG (275-295)
[2025-02-22] VITALS (9 sets, daily range): BP systolic 143–150; BP diastolic 83–93; O2SAT 90–98
[2025-02-22] MEDS ORDERED: CIPROFLOXACIN IN 5 % DEXTROSE 200 ML IV SCH (18:20)
[2025-02-23] VITALS (8 sets, daily range): BP systolic 133–143; BP diastolic 77–81; O2SAT 90–96
[2025-02-24] VITALS (8 sets, daily range): BP systolic 127–156; BP diastolic 74–92; O2SAT 95–99
[2025-02-24] MEDS ORDERED: DEXTROSE 50 % IN WATER 0.5 G/ML VIAL IV PRN (07:30)
[2025-02-24] MEDS ORDERED: INSULIN LISPRO 1,000 UNIT/10 ML UNITS SUBCUTANEO PRN (07:30)
[2025-02-24 11:51] LABS: BASO % 0.4 % (0.1-1.2); EOS # 0.16 (0.04-0.54); EOS % 3.1 % (0.7-7.0); LYMPH # 0.74 (1.18-3.74); LYMPH % 14.4 % (19.3-53.1); MEAN PLATELET VOLUME 10.70 fl (9.4-12.4); MONO # 0.37 (0.24-0.82); MONO % 7.2 % (4.7-12.5); NEUT # 3.79 (1.56-6.13); NEUT % 73.5 % (34.0-71.1); RED CELL DISTRIBUTION WIDTH 12.8 % (11.6-14.4)
[2025-02-24 11:52] LABS: URINE APPEARANCE Clear; URINE BILIRRUBIN Negative (NEGATIVE); URINE BLOOD Moderate; URINE COLOR Yellow; URINE KETONE Negative (NEGATIVE); URINE LEUKOCYTE Trace; URINE NITRATE Negative; URINE UROBILINOGEN 1.0 E.U./dl
[2025-02-24 11:55] LABS: URINE BACTERIA 30.0 uL (0.0-1933); URINE EPITHELIAL CELLS 1.8 uL (0.0-38.8); URINE RBC 355.1 uL (0.0-20.8); URINE WBC 37.2 uL (0.0-23.2)
[2025-02-24 11:57] LABS: URINE CAST 0.29 uL (0.0-1.40); URINE GLUCOSE 500 MG/DL (NEGATIVE); URINE PROTEIN 100 (NEGATIVE)
[2025-02-24 12:52] LABS: ALT/SGPT 38.0 U/L (12-78); AST/SGOT 29.0 U/L (15-37); BILIRUBIN TOTAL 0.49 mg/dL (0.3-1.2); BUN CREA RATIO 7.0 (7.0-25.0); CREATININE SERUM 0.54 mg/dL (0.70-1.30); GFR 158.55; GLOBULINA 3.7 G/DL (2.4-3.5); GLUCOSE FASTING 204.0 mg/dL (65-100); OSMOLALITY SERUM 291.0 MOSM/KG (275-295)
[2025-02-25 02:25] VITALS: BP 111/70; O2SAT 98
[2025-02-25 02:26] VITALS: BP 144/83; O2SAT 98
[2025-02-25] MEDS ORDERED: RINGERS SOLUTION,LACTATED 1,000 ML IV SCH (05:45)
[2025-02-25 08:00] VITALS: BP 145/83; O2SAT 95; O2SAT 96
[2025-02-25] MEDS ORDERED: POVIDONE-IODINE 118 ML BOTT TOP ONE (14:00)
[2025-02-25] MEDS ORDERED: IOVERSOL 320 MG/ML - 50 ML VIAL IV ONE (14:00)
[2025-02-26 02:00] VITALS: BP 145/80; O2SAT 96
[2025-02-26 08:00] VITALS: BP 160/84; O2SAT 95
[2025-02-26 18:26] VITALS: BP 143/80; O2SAT 96
[2025-02-27 02:24] VITALS: BP 149/80; O2SAT 95
[2025-02-27 07:00] VITALS: BP 156/83; O2SAT 95
[2025-02-27 08:20] LABS: BASO % 0.3 % (0.1-1.2); EOS # 0.18 (0.04-0.54); EOS % 2.7 % (0.7-7.0); LYMPH # 0.86 (1.18-3.74); LYMPH % 12.8 % (19.3-53.1); MEAN PLATELET VOLUME 10.20 fl (9.4-12.4); MONO # 0.57 (0.24-0.82); MONO % 8.5 % (4.7-12.5); NEUT # 5.07 (1.56-6.13); NEUT % 75.3 % (34.0-71.1); RED CELL DISTRIBUTION WIDTH 12.6 % (11.6-14.4)
[2025-02-27 08:45] LABS: BUN CREA RATIO 13.0 (7.0-25.0); CREATININE SERUM 0.61 mg/dL (0.70-1.30); GFR 137.75; GLUCOSE FASTING 170.0 mg/dL (65-100); OSMOLALITY SERUM 287.0 MOSM/KG (275-295)
[2025-02-27 15:40] VITALS: BP 152/83; O2SAT 96
[2025-02-28 00:55] VITALS: BP 138/86; O2SAT 100
[2025-02-28 08:00] VITALS: BP 144/85; O2SAT 95
[2025-02-28 16:00] VITALS: BP 155/81; O2SAT 95
[2025-03-01 01:11] VITALS: BP 141/83; O2SAT 97
[2025-03-01 10:22] VITALS: BP 146/83; O2SAT 96
[2025-03-01 16:00] VITALS: BP 147/79; O2SAT 95
[2025-03-01] MEDS ORDERED: TAMSULOSIN HCL 0.4 MG CAP PO SCH (17:00)
[2025-03-02 01:17] VITALS: BP 146/103; BP 146/79; O2SAT 95; O2SAT 97
[2025-03-02 08:00] VITALS: BP 145/83; O2SAT 96
[2025-03-02] MEDS ORDERED: INTESTINEX680 M1 PO (14:38)
[2025-03-02] MEDS ORDERED: SYNJARDY 12.5-1 EACH PO (14:38)
[2025-03-02] MEDS ORDERED: SIMETHICONE125 M1 PO (14:38)
[2025-03-02] MEDS ORDERED: TAMS0.4C PO (14:38)
== END 2025-03-02 17:08 | disposition home or self-care (01) | DRG 330 ==
LOC: SURH 02-17 07:34 → O/R 02-17 07:34 → SURH 02-17 09:00
PROVIDERS: Internal Medicine; Internal Medicine Geriatric Medicine; ADMIT Colon & Rectal Surgery; ATTEND Colon & Rectal Surgery
PROC: 0DTP0ZZ Resection of Rectum, Open Approach (ICD-10-PCS; 2025-02-17)
PROC: 0T788DZ Dilation of Bilateral Ureters with Intraluminal Device, Via Natural or Artificial Opening Endoscopic (ICD-10-PCS; 2025-02-17)
PROC: 0DQ80ZZ Repair Small Intestine, Open Approach (ICD-10-PCS; principal; 2025-02-17 14:30)
PROC: 4A12X4Z Monitoring of Cardiac Electrical Activity, External Approach (ICD-10-PCS; 2025-02-18)
PROC: BW2GYZZ Computerized Tomography (CT Scan) of Pelvic Region using Other Contrast (ICD-10-PCS; 2025-02-22)
PROC: BT14ZZZ Fluoroscopy of Kidneys, Ureters and Bladder (ICD-10-PCS; 2025-02-25)
DX: K57.20 Diverticulitis of large intestine with perforation and abscess without bleeding (principal); K91.71 Accidental puncture and laceration of a digestive system organ or structure during a digestive system procedure; K91.89 Other postprocedural complications and disorders of digestive system; N17.8 Other acute kidney failure; E11.9 Type 2 diabetes mellitus without complications; Z79.4 Long term (current) use of insulin; E87.5 Hyperkalemia